=== PATIENT | male | born 2000 | race Two or more races ===

== ENCOUNTER 2025-09-26 18:49 | Emergency (ER) | payer BC, SELFPAY ==
[2025-09-26 19:01] VITALS: BP 137/95; PULSE 86; RESP 18; TEMP 37.1; O2SAT 97; BMI 27.4
--- NOTE | 2025-09-26 19:03 | EDNOTE_ITS ---
Upper Respiratory Inf. RME/HPI General Chief Complaint: Dental/Oral/Throat Stated Complaint: Fever, body aches, sore throat X 3 days Time Seen by Provider: 09/26/25 19:02 Arrival date/time: 09/26/25 18:49 25M with no significant PMH presents to ED with several days of fevers/chills, body aches, sore throat, and cough. Entire family has similar symptoms. Limitations: no limitations Related Data Previous Rx's ?Medication ?Instructions ?Recorded ranitidine HCl 150 mg tablet 150 mg PO Q12H PRN acid 1 10/22/17 (Zantac) reflux/upset stomach #20 tab s albuterol sulfate 90 mcg/actuation 2 puff inhalation Q 6H PRN 05/06/20 aerosol inhaler (Ventolin HFA) shortness of breath or wheezing #8.5 grams azithromycin 500 mg tablet See Rx Instructions PO .COM PLEX #6 05/06/20 tabs acetaminophen 650 mg 650 mg PO Q8H PRN fever or p ain 10/12/22 tablet,extended release #30 tabs ibuprofen 600 mg tablet 600 mg PO Q8H PRN fever or p ain 10/12/22 #30 tabs Allergies Allergy/AdvReac Type Severity Reaction Status Date / Time No Known Allergies Allergy Verified 09/26/25 18:55 Review of Systems Review of Systems Systems Reviewed: All systems reviewed, normal except as documented Constitutional Constitutional: Reports as per HPI, Reports body ache(s), Reports chills and Reports fever(s) ENT Ears, Nose, Mouth, and Throat: Reports as per HPI and Reports sore throat Respiratory Respiratory: Reports as per HPI and Reports cough Past Medical History Past Medical History CARDIAC: Negative Congestive Heart Failure RESPIRATORY: Negative Chronic Obstructive Pulmonary Disease (COPD) GENITOURINARY: Negative Renal Disease ENDOCRINE: Negative Diabetes Mellitus Type 1 or Diabetes Mellitus Type 2 Social History SMOKING STATUS: Former smoker ED Exam General Limitations: Present no limitations General appearance: Present alert and in no apparent distress Head Head exam: Present atraumatic ENT ENT exam: Present normal exam, normal oropharynx and mucous membranes moist Neck Neck exam: Present normal inspection, full ROM and trachea midline Chest Chest inspection: Present normal inspection and symmetric chest wall rise Respiratory Respiratory exam: Present normal lung sounds bilaterally Neurological Exam Neurological exam: Present alert and oriented X3 Psychiatric Psychiatric exam: Present normal affect and normal mood Skin Skin exam: Present warm, dry, intact and normal color Course Quality Measures none Vital Signs Vital signs: Vital Signs Temperature 98.8 F 09/26/25 19:01 Pulse Rate 86 09/26/25 19:01 Respiratory Rate 18 09/26/25 19:01 Blood Pressure 137/95 H 09/26/25 19:01 Pulse Oximetry (%) 97 09/26/25 19:01 Oxygen Delivery Method Room Air 09/26/25 19:01 O2 at 97% on RA and WNLs Upper Respiratory Infection MDM Narrative MDM Narrative:: 25M with no significant PMH presents to ED with several days of fevers/chills, body aches, sore throat, and cough. Entire family has similar symptoms. Physical exam reveals clear oropharynx and lungs. Normal WOB. Patient is afebrile, calm, and alert. General Surgeon given. Patient data External records reviewed:: [facility] previous records Clinical information provided by:: patient Social determinants that could affect healthcare access:: none Patient has the following chronic illnesses:: none How is presenting disease/condition affected by chronic disease/condition?: no chronic disease Evaluation data The following diagnostics were reviewed and interpreted by me:: other (specify) (none) Lab and/or radiology exams considered but not ordered:: not ordered Interpretation Summary: n/a Medications / Prescriptions Medications or Prescriptions considered but not ordered:: not ordered Medication administrations:: n/a Consultations Consultation(s) initiated? (list below): No Diagnosis Upper Respiratory Differential Diagnosis: upper respiratory infection, croup, otitis media, sinusitis, viral infection, bronchitis, influenza and pharyngitis Most likely diagnosis given after review of the tests above:: URI Admission Indicated Admission indicated?: not indicated Admission Request Was there a request for admission?: No Disposition Plan Disposition Plan: Discharge Discharge Attestation Discharge Attestation: The patient and all family members were given an opportunity to ask questions and understood the discharge instructions. Discharge instructions specifically effects, indications for sooner follow up or return to the emergency department, and the expected course of current diagnosis. Patient condition: Stable Discharge Plan Plan Patient Disposition: HOME (Self Care) Discharge Disposition comment: Stable Prescriptions/Referrals Prescriptions/Med Rec: No Action ranitidine HCl [Zantac] 150 mg tablet 150 mg PO Q12H PRN (Reason: acid reflux/upset stomach) Qty: 20 0RF albuterol sulfate [Ventolin HFA] 90 mcg/actuation HFA aerosol inhaler 2 puff INH Q6H PRN (Reason: shortness of breath or wheezing) Qty: 8.5 0RF azithromycin 500 mg tablet See Rx Instructions .ROUTE .COMPLEX Qty: 6 0RF Rx Instructions: take 500 mg today (day 1), then 250 mg for 4 days (days 2-5) acetaminophen 650 mg tablet extended release 650 mg PO Q8H PRN (Reason: fever or pain) Qty: 30 0RF Rx Instructions: swallow whole; do not chew/break/dissolve/open ibuprofen 600 mg tablet 600 mg PO Q8H PRN (Reason: fever or pain) Qty: 30 0RF Problem List Clinical Impression: URI (upper respiratory infection) Patient/Caregiver Discharge Instructions Education Materials: ED URI, Viral, No Abx (Adult) Additional Instructions: Please follow-up with PCP within 24-48 hours and return immediately if symptoms worsen. Ibuprofen/Tylenol can be used simultaneously for greater fever/pain control. Benadryl is good for cough, congestion, and sleep. Keep hydrated. Advance diet as tolerated. Print Language: Bengali Stand Alone Forms: Patient Portal Info Letter PA/COMMUNITY RELATIONS COORDINATOR Supervising Physician PA/STEVO Supervising Physician: Dr. Haddad
== END 2025-09-26 20:20 | disposition home or self-care (01) ==
LOC: SERX 19:51
PROVIDERS: Emergency Provider Emergency Medicine; PCP Family Medicine
DX: J06.9 Acute upper respiratory infection, unspecified (principal); Z87.891 Personal history of nicotine dependence
CPT/HCPCS: 99281